=== PATIENT | female | born 1990 | race Caucasian/White ===

== ENCOUNTER → 2018-04-09 14:51 | Outpatient (CLI) | payer OTHER, SELFPAY ==
[2018-04-09] MEDS: Lactated Ringers 1,000 ML 250 ML IV (14:40)
[2018-04-09] MEDS: Ondansetron 4 MG/2 ML Vial IV (15:40)
[2018-04-09] MEDS: proMETHazine 25 MG/ML Syringe IV (15:41)
== END ==
PROVIDERS: Family Provider Obstetrics & Gynecology; PCP Obstetrics & Gynecology; Referring Provider Obstetrics & Gynecology; Visit Provider Obstetrics & Gynecology
DX: O21.9 Vomiting of pregnancy, unspecified (principal); Z3A.00 Weeks of gestation of pregnancy not specified
CPT/HCPCS: 96361 ×2; 96365; 96375 ×2; J7120; A4216; J2405; J3490

== ENCOUNTER 2018-10-21 17:55 | Inpatient (IN) | payer OTHER, SELFPAY ==
[2016-11-27 20:44] VITALS: BMI 37.0
[2018-10-21] VITALS (10 sets, daily range): BP systolic 114–160; BP diastolic 69–96; PULSE 80–88; RESP 16–18; TEMP 36.8–37.2; O2SAT 96–100; BMI 46.6
[2018-10-21] MEDS: Lactated Ringers 1,000 ML 15 ML IV (16:41)
[2018-10-21 17:07] LABS: International Normalized Ratio 0.9; Prothrombin Time (Protime)PT. 11.7 SECONDS (11.7-14.9)
[2018-10-21 17:08] LABS: Partial Thromboplast Time 27.1 Seconds (24.1-36.2)
[2018-10-21 17:10] LABS: Protein, Urine (Random) 10.6 mg/dL (<11.9); Protein:Creat Ratio 606 mg/g CRE (0-200)
[2018-10-21 17:24] LABS: AST(SGOT) 17 U/L (15-37); Alanine Aminotransfer ALT/SGPT 18 U/L (13-56); EST Glomerular Filtration Rate 106 mL/min (>60); Est Glom Filt Rate - Afr Amer 128 mL/min (>60); Estimated Creatinine Clearance 108.63 ml/min; Uric Acid 4.8 mg/dL (2.6-6.0)
[2018-10-21 17:25] LABS: Hemoglobin 12.6 g/dL (12.0-15.0); Mean Corp Hgb Conc 34.1 g/dL (32-36); Mean Corpuscular Hgb 30.2 pg (27.0-32.0); Mean Corpuscular Volume 88.7 fL (81-99); Mean Platelet Vol. 13.1 fl (6.2-12.0); Platelet Count 222 K/mm3 (150-450); RBC Distribution Width CV 13.7 % (11.6-14.6); RBC Distribution Width SD 44.2 fl (35.1-43.9); Red Blood Count 4.17 M/mm3 (4.2-5.4); White Blood Count 12.7 K/mm3 (4.4-11.0)
--- NOTE | 2018-10-21 17:44 | HP.PCM_ITS ---
History Date of Admission: 10/21/18 Final VIKY Source: US <20 weeks Gestational age: 34.4 History of this : This is a 28 year-old, @ 34.4 wks presented to the office with severe BP with TRUBP average of 171/106. pt reports frontal headaches at night but does not take anything for relief as they self resolve- pt reports occasional changes with vision. pt reports increased swelling in hands and legs as well. pt reports good FM, no vaginal bleeding or LOF. Allergies bee venom protein (honey bee) Allergy (Verified 10/13/18 13:45) Other Home Medications: Home Medications No122/Iron/Folic Acid [ Multi Tablet] 1 each PO DAILY 04/09/18 [place]-3 Fatty Acids [Fish Oil] 1 tab PO DAILY 10/21/18 Ondansetron [Ondansetron Odt] 8 mg PO Q8H PRN PRN 10/21/18 Smoking Status: Never smoker Alcohol: None Number of Fetus(es): 1 NST - FHR Rate Baby A Baseline: 145 Variability:: Moderate Accelerations:: 15 x 15 Decelerations:: None NST Reactive:: Yes FHR Category:: Category I Uterine Activity:: no ctx History Past Pregnancies: Past Pregnancies Delivery Date Name GA/Weeks Outcome Route Weight Gender Labor Length Anesthesia Delivery Location Provider FOB Labs: O+, HIV neg, HEPB NEG, rub imm, syphilis neg Expected Delivery Method: Spontaneous Vaginal Review of Systems Eyes: Reports: Blurred vision - sees stars only on occasion HEENT: Reports: Head Aches - frontal at night Cardiovascular: Denies: Chest Pain Gastrointestinal: Denies: Abdominal Pain Physical Exam General: Alert, Oriented x3 Abdomen: Soft, Gravid - mild RUQ on deep palpation Extremities:: No clubbing, Other - +2 pitting edema. +2 DTR on LE, + clonus on right only Estimated gestational size: Appropriate for gestational size Assessment/Plan This is a 28 year-old, @ 34.4 wks with PRE E with severe features 1) IOL with cytotec 2) Celestone 3) Magnesium 4) HTN protocol 5) may have epidural 6) anticipate 7) stick I&O 8) maintain total Fluids (oral and IV) to only 150/hr 9) PRE E labs reviewed- elevated Pro/Creat ratio
[2018-10-21] MEDS: Betamethasone/Betamethasone 30 MG/5 ML Vial 12 MG IM (17:52)
--- NOTE | 2018-10-21 18:10 | PCM.PN.BLA ---
Progress Note limited bedside ultrasound done- confirms vertex presentation. NORBERTO appears wnl. cervical exam performed- Closed/thick/high
[2018-10-21] MEDS: Magnesium Sulfate 4gm/100mL 6 GM/150 ML IV.SOLN. IV (18:20)
[2018-10-21] MEDS: Magnesium Sulfate 20 GM/500 ML BAG IV (18:59)
--- NOTE | 2018-10-21 19:41 | NURSING ---
Dr. Dean is ok with patient having a light meal prior to first Cytotec administration.
[2018-10-21] MEDS: Labetalol 200 MG Tablet PO (19:51)
[2018-10-21] MEDS: miSOPROStol 25 MCG TABLET VAGINAL (19:58)
[2018-10-21 21:11] LABS: Group B Strep DNA By PCR Negative (Negative); Internal Control PASS; Probe Check PASS; Specimen Processing Control PASS
[2018-10-21] MEDS: Acetaminophen 325 MG Tablet PO (21:45)
[2018-10-22] VITALS (16 sets, daily range): BP systolic 125–151; BP diastolic 66–88; PULSE 78–90; RESP 15–18; TEMP 36.6–37.1; O2SAT 96–98
[2018-10-22] MEDS: miSOPROStol 25 MCG TABLET VAGINAL ×2 (00:05→04:40)
[2018-10-22] MEDS: Magnesium Sulfate 20 GM/500 ML BAG IV ×2 (04:31→14:12)
[2018-10-22] MEDS: miSOPROStol 25 MCG TABLET 50 MCG VAGINAL ×2 (08:51→14:55)
[2018-10-22] MEDS: Labetalol 200 MG Tablet PO ×2 (11:31→20:20)
[2018-10-22] MEDS: Betamethasone/Betamethasone 30 MG/5 ML Vial 12 MG IM (18:29)
--- NOTE | 2018-10-22 18:34 | PCM.PN.BLA ---
Progress Note S: Patient feeling increased ctxs O: BP - 138/78 cvx - 1/75/-3 patient is grossly ruptured fhts 125 with mod variability, accels tocos irregular ctxs A&P: continue induction for severe preeclampsia on magnesium sulfate on cytotec & will start pitocin at 2100
[2018-10-22] MEDS: Ondansetron 4 MG/2 ML Vial IV (21:00)
[2018-10-22] MEDS: Lactated Ringers 500 ML 999 ML IV (21:33)
[2018-10-22] MEDS: Oxytocin 30 units/NS 500 ml 30 UNITS/500 ML IV.SOLN IV (22:07)
[2018-10-22] MEDS: fentaNYL-bupivacaine (epidural) 100 ML BAG EPIDURAL (22:11)
--- NOTE | 2018-10-22 22:24 | NURSING ---
Dr. Ponce delayed to room d/t [facility] c/s.
[2018-10-23] VITALS (12 sets, daily range): BP systolic 108–140; BP diastolic 58–81; PULSE 67–86; RESP 14–18; TEMP 36.7–36.9; O2SAT 93–97
[2018-10-23] MEDS: Magnesium Sulfate 20 GM/500 ML BAG IV ×3 (00:20→20:28)
[2018-10-23] MEDS: fentaNYL-bupivacaine (epidural) 100 ML BAG EPIDURAL (02:17)
--- NOTE | 2018-10-23 02:34 | PCM.PN.BLA ---
Progress Note S: Patient comfortable with epidural but feels some pressure with ctxs O: cvx - 3/80/-2 FSE placed fhts 135 with mod variability, accels - s/p period of recurrent lates that resolved with oxygen, stopping pitocin and position changes tocos Q 5-6 minutes A&P: Continue magnesium for severe preE Will restart pitocin when able
[2018-10-23] MEDS: Ondansetron 4 MG/2 ML Vial IV (06:57)
[2018-10-23] MEDS: Oxytocin 30 units/NS 500 ml 30 UNITS/500 ML IV.SOLN 334 UNITS IV (09:18)
[2018-10-23] MEDS: Lactated Ringers 1,000 ML 15 ML IV (09:45)
--- NOTE | 2018-10-23 09:50 | PCM.OPRPT ---
Vaginal Delivery Maternal Presentation: Medically Indicated Induction Method of Induction: Pitocin, Amniotomy, Cytotec Medical Reason for Induction: Maternal Medical Condition: list: - Severe preeclampsia Amniotic Membrane Rupture Type: Artificial Amniotic Fluid Description: Clear Final VIKY: 11/28/18 Gestational age: 34 Weeks and 6 Days Date of Procedure: 10/23/18 Pre-Operative Diagnosis: Severe preeclampsia Post-Operative Diagnosis: Same Surgery/ Procedure Performed: Spontaneous Vaginal Delivery Type of Anesthesia: Epidural Description of Procedure: Patient prepped & draped in stirrups when c/c/+2. She pushed to deliver head. Shoulders & body easily followed. 3VC clamped & cut. Infant taken to warmer with waiting pediatric team present. Placenta delivered with gentle traction. Good uterine tone obtained. Presentation: MILKA Placental Delivery Description: Spontaneous Placenta Disposition: [facility] Cord Vessel Description: 3 Vessels Cord Gases drawn per routine: ABG, VBG Cord Entanglement: None Estimated Blood Loss: 300ml A gender: Female - Gaby Alida; weight 3-13 (1 minute): 3 (5 minute): 8 - of 9 @ 10 minutes Episiotomy Description: None Laceration: 1st degree - vaginal - repaired with 3-0 vicryl Medications given after delivery: IV Pitocin Complications: None
[2018-10-23] MEDS: Labetalol 200 MG Tablet PO ×2 (11:06→22:32)
--- NOTE | 2018-10-23 16:51 | NURSING ---
@1050am IBCLC at bedside and explained to mother double pumping and hand expression. Pumping began for baby that was tranferred to SCN at this time. Mother was able to pump about 10 cc
[2018-10-23] MEDS: Ibuprofen 600 MG Tablet PO (20:41)
[2018-10-24] VITALS (14 sets, daily range): BP systolic 114–148; BP diastolic 72–94; PULSE 66–77; RESP 17–20; TEMP 36.3–37.1; O2SAT 94–98
[2018-10-24] MEDS: Acetaminophen 500 MG Tablet 1000 MG PO (02:26)
[2018-10-24] MEDS: Magnesium Sulfate 20 GM/500 ML BAG IV (07:19)
[2018-10-24] MEDS: Ibuprofen 600 MG Tablet PO ×3 (07:42→21:50)
[2018-10-24] MEDS: Senna/Docusate Sodium 1 Tablet PO (07:42)
[2018-10-24] MEDS: Labetalol 200 MG Tablet 300 MG PO ×3 (10:12→21:50)
[2018-10-24] MEDS: 0.9% Saline Lock 10 ML Syringe IV (10:12)
--- NOTE | 2018-10-24 12:28 | PCM.PN.OB ---
Subjective: Patient feels well. - Physical Exam General: Alert, Oriented x3 Abdomen: Soft, Non Tender, Non-Distended - ff mid & below umb Extremities: No Calf Tenderness Vital Signs Temp Pulse Resp BP Pulse Ox 98.2 F 70 18 141/88 H 98 10/24/18 09:40 10/24/18 09:40 10/24/18 09:40 10/24/18 09:40 10/24/18 09:40 Oxygen Delivery Method Room Air Weight: 280 lb 3.32 oz Body Mass Index (BMI) 46.6 Intake and Output for Last 24 Hours 10/22/18 10/23/18 10/24/18 23:59 23:59 23:59 Intake Total 4150.86 / 4150.86 3571.30 / 3571.30 1421.08 / 1421.08 Output Total 4550 / 4550 3115 / 3115 725 / 725 Balance -399.14 / -399.14 456.30 / 456.30 696.08 / 696.08 Microbiology Past 72 Hours 10/21/18 Unknown Group B Streptococcus Culture - Final Genital vaginal Group B Beta Streptococcus is not isolated. Medical Necessity - Tobacco Use Smoking Status: Never smoker Assessment/Plan PPD#1 Severe preE - s/p magnesium. Continue labetalol 300mg tid. Bp's reviewed & normal to mildly elevated. Routine care.
[2018-10-25] MEDS: Acetaminophen 500 MG Tablet 1000 MG PO ×2 (00:26→15:04)
[2018-10-25 02:03] VITALS: BP 125/7; PULSE 70; RESP 16; TEMP 36.4; O2SAT 95
[2018-10-25] MEDS: Labetalol 200 MG Tablet 300 MG PO ×3 (06:30→22:04)
--- NOTE | 2018-10-25 09:45 | PCM.PN.OB ---
Subjective: She denies headache, visual changes, epigastric pain or shortness of breath. Pain is minimal. She has had a bowel movement in years urinating without difficulty. - Physical Exam General: Alert, Cooperative, No apparent distress Extremities: Edema - 2+, 2+DTRS, no clonu Vital Signs Temp Pulse Resp BP Pulse Ox 97.5 F L 70 16 125/7 H 95 10/25/18 02:03 10/25/18 02:03 10/25/18 02:03 10/25/18 02:03 10/25/18 02:03 Oxygen Delivery Method Room Air Weight: 127.1 kg Body Mass Index (BMI) 46.6 Intake and Output for Last 24 Hours 10/23/18 10/24/18 10/25/18 23:59 23:59 23:59 Intake Total 3571.30 / 3571.30 1421.08 / 1421.08 Output Total 3115 / 3115 925 / 925 Balance 456.30 / 456.30 496.08 / 496.08 Microbiology Past 72 Hours 10/21/18 Unknown Group B Streptococcus Culture - Final Genital vaginal Group B Beta Streptococcus is not isolated. Medical Necessity - Tobacco Use Smoking Status: Never smoker Assessment/Plan day #2 status post vaginal delivery at 34 6/7 weeks gestation for severe preeclampsia. Patient is doing well. Blood pressures remain elevated but stable. Continue labetalol for now. Monitor until tomorrow. If patient is stable will likely discharge home tomorrow on oral antihypertensives. Infant is in special care nursery and doing well
[2018-10-25 10:00] VITALS: BP 141/79; PULSE 74; RESP 16; TEMP 37.3
[2018-10-25] MEDS: Ibuprofen 600 MG Tablet PO ×2 (10:35→20:54)
[2018-10-25 15:00] VITALS: BP 140/82; PULSE 71; RESP 18; TEMP 36.5
[2018-10-25 20:45] VITALS: BP 150/86; PULSE 66; RESP 16; TEMP 36.4
[2018-10-26 01:53] VITALS: BP 150/90; PULSE 66; RESP 16; TEMP 36.6
--- NOTE | 2018-10-26 01:56 | NURSING ---
pt up and took shower after being in SCN is now going to pump again denies headache and blurred vision states she is comfortable.
[2018-10-26] MEDS: Labetalol 200 MG Tablet 300 MG PO ×2 (05:40→14:39)
[2018-10-26] MEDS: Ibuprofen 600 MG Tablet PO (05:44)
[2018-10-26 05:45] VITALS: BP 145/95
[2018-10-26 08:00] VITALS: BP 142/73; PULSE 73; RESP 16; TEMP 36.6
--- NOTE | 2018-10-26 08:16 | DCINST_ITS ---
Discharge Diet: No Restrictions Discharge Activity: Return to Normal Activity, May not drive while taking narcotic pain medications., May Shower May resume sexual activity in: 4-6 weeks Additional Activity Instructions:: Nothing in the vagina for 4-6 weeks. You may return to work/school in 6 weeks. Call your doctor if your incision/area has: Continuous Slow Oozing, Sudden Increased Bleeding, Increased Pain/ Swelling, Increased Redness, Foul Smelling Discharge Additional Instructions: If you experience any of the following, contact your healthcare provider. * Bleeding that soaks a pad every hour for 2 hours * Fever 100.4 or higher * Unrelieved incision or abdominal pain * Swelling, redness, discharge or bleeding from your incision or episiotomy site * Your incision begins to separate * Problems urinating (including inability to urinate or burning while urinating). * Visual changes * Severe headache * Flu-like symptoms * Pain or redness in one of both of your breasts * Pain, warmth, tenderness or swelling in your legs, especially the calf area * Frequent nausea and vomiting * Symptoms of depression or anxiety If you experience any of the following, call 911 or go to the nearest Emergency Room. * Chest pain * Problems breathing * Seizure activity * Partial or complete paralysis of a body part, slurred speech, weakness or drooping of the face, or a sudden inability to walk or hold your balance Allergies/Adverse Reactions: Allergies bee venom protein (honey bee) Allergy (Verified 10/13/18 13:45) Other Medications to take at Discharge No122/Iron/Folic Acid [ Multi Tablet] 1 each PO DAILY 04/09/18 [place]-3 Fatty Acids [Fish Oil] 1 tab PO DAILY 10/21/18 Labetalol [Trandate (Beta Graham)] 300 mg PO TID #135 tab 10/26/18 Nifedipine [Procardia Xl] 30 mg PO DAILY #30 tab.er.24 10/26/18 The following prescriptions were given: Nifedipine [Procardia Xl] 30 mg PO DAILY #30 tab.er.24 Prescription Printed Labetalol [Trandate (Beta Graham)] 300 mg PO TID #135 tab Prescription Printed Please Follow Up With: Basia Bentley MD - [phone] When: Call to make an appointment in our office on 10/28 or 10/29/18 and 6 weeks or as needed. Primary Care Physician: Grace Kerr [Primary Care Provider] - Test Results: Test results from this visit will be discussed in further detail at your follow- up appointment, if applicable.
--- NOTE | 2018-10-26 08:25 | PCM.PN.OB ---
Subjective: Patient seen at bedside doing well. Patient denies any visual changes. Has a mild headache but reports has not been sleeping. Patient denies any right upper quadrant pain. Lochia is mild. Swelling is decreasing in hands and legs. - Physical Exam General: Alert, Oriented x3 Abdomen: Soft, Non Tender, Non-Distended, - - Fundus firm Extremities: - - +1 edema in the lower extremities Vital Signs Temp Pulse Resp BP Pulse Ox 97.8 F 66 16 145/95 H 95 10/26/18 01:53 10/26/18 01:53 10/26/18 01:53 10/26/18 05:45 10/25/18 02:03 Oxygen Delivery Method Room Air Weight: 127.1 kg Body Mass Index (BMI) 46.6 Intake and Output for Last 24 Hours 10/24/18 10/25/18 10/26/18 23:59 23:59 23:59 Intake Total 1421.08 / 1421.08 Output Total 925 / 925 Balance 496.08 / 496.08 Microbiology Past 72 Hours 10/21/18 Unknown Group B Streptococcus Culture - Final Genital vaginal Group B Beta Streptococcus is not isolated. Medical Necessity - Tobacco Use Smoking Status: Never smoker Assessment/Plan day #3 status post after induction of labor for severe preeclampsia at 34.6 weeks gestation Procardia 30 XL added to medications continue labetalol 300 mg 3 times daily Monitor vital signs if good response to the Procardia may DC to hotel status today Follow-up in the office on 10/29/2018 for blood pressure check at 9 AM Signs and symptoms of preeclampsia were reviewed with the patient
[2018-10-26] MEDS: NIFEdipine 30 MG Tablet PO (10:44)
--- NOTE | 2018-10-26 11:24 | DS.PCM_ITS ---
Discharge Summary Date of Admission: 10/21/18 Date of Discharge: 10/26/18 Summary: This patient was admitted to [facility] on 10/21/2018 for severe preeclampsia 34.4 weeks gestation. Labor induction was started and patient progressed to fully dilated and delivered a live on 10/23/2018 via vaginal delivery. Patient remained on labetalol 300mg 3 times daily to control her blood pressures and on day #3 Procardia 30 XL was also added as her blood pressures are still slightly elevated. Remains stable she received magnesium during labor and . At time of discharge patient had a slight headache but she attributed that to not sleeping she denied any right upper quadrant pain or visual changes. We will follow-up in the office on 10/29/2018 for blood pressure check. - Physical Exam Vital Signs Temp Pulse Resp BP Pulse Ox 97.8 F 66 16 145/95 H 95 10/26/18 01:53 10/26/18 01:53 10/26/18 01:53 10/26/18 05:45 10/25/18 02:03 Oxygen Delivery Method Room Air Weight: 127.1 kg Body Mass Index (BMI) 46.6 Intake and Output for Last 24 Hours 10/24/18 10/25/18 10/26/18 23:59 23:59 23:59 Intake Total 1421.08 / 1421.08 Output Total 925 / 925 Balance 496.08 / 496.08 Microbiology Past 72 Hours 10/21/18 Unknown Group B Streptococcus Culture - Final Genital vaginal Group B Beta Streptococcus is not isolated.
[2018-10-26 12:00] VITALS: BP 134/79; PULSE 73; RESP 16; TEMP 36.4
== END 2018-10-26 15:00 | disposition home or self-care (01) | DRG 807 ==
LOC: WPOUT 18:03
PROVIDERS: Obstetrics & Gynecology; Admitting Provider Obstetrics & Gynecology; Family Provider Obstetrics & Gynecology; PCP Obstetrics & Gynecology; Referring Provider Obstetrics & Gynecology; Visit Provider Obstetrics & Gynecology
DX: O14.14 Severe pre-eclampsia complicating childbirth (principal); Z37.0 Single live birth; O60.14X0 Preterm labor third trimester with preterm delivery third trimester, not applicable or unspecified; O70.0 First degree perineal laceration during delivery; Z3A.34 34 weeks gestation of pregnancy
CPT/HCPCS: 59025; 59050; 76815; 82565; 82570; 84156; 84450; 84460; 84550; 85027; 85610; 85730; 86850; 86900; 86901; 87081; 87653; 99218; J7120; A4216; G0378; J0702; J2405

== ENCOUNTER 2021-04-18 14:55 | Outpatient (CLI) | payer OTHER, SELFPAY ==
[2021-04-18 15:58] LABS: Hematocrit 34.7 % (37-47); Mean Corp Hgb Conc 34.6 g/dL (32-36); Mean Corpuscular Hgb 29.6 pg (27.0-32.0); Mean Corpuscular Volume 85.5 fL (81-99); Platelet Count 291 K/mm3 (150-450); RBC Distribution Width CV 13.8 % (11.6-14.6); Red Blood Count 4.06 M/mm3 (4.2-5.4); White Blood Count 10.3 K/mm3 (4.4-11.0)
[2021-04-18 16:01] VITALS: BMI 47.9
--- NOTE | 2021-04-18 16:14 | NURSING ---
Changed OB medical exam visual disturbances section on admission due to patient telling this RN that she was not having visual disturbances at present but that she had them earlier this am. States that they have resolved at present.
[2021-04-18 16:17] LABS: Protein:Creat Ratio 203 mg/g CRE (0-200)
[2021-04-18] MEDS: Betamethasone/Betamethasone 30 MG/5 ML Vial 12 MG IM (16:29)
[2021-04-18 16:30] LABS: AST(SGOT) 8 U/L (15-37); Alanine Aminotransfer ALT/SGPT 11 U/L (13-56); Creatinine, Serum 0.82 mg/dL (0.55-1.02); EST Glomerular Filtration Rate 87 mL/min (>60); Est Glom Filt Rate - Afr Amer 105 mL/min (>60); Estimated Creatinine Clearance 91.09 ml/min; Uric Acid 3.7 mg/dL (2.6-6.0)
--- NOTE | 2021-04-18 18:09 | OB.TRI.NOTE ---
HPI - General HPI Narrative THOMAS LOBO, is a 30 F at 30.0 weeks gestation that was sent over from office for elevated blood pressure. True BP in office was 152/93. Patient has a history of a PTD at 34.6 weeks due to preeclampsia. PFSH PFSH Home Medications Multi 1 ea PO DAILY 04/09/18 [History Last Taken Unknown] omega 3-rmj-rzj-fish oil 1 tab PO DAILY 10/21/18 [History Last Taken Unknown] aspirin 81 mg PO DAILY 04/18/21 [History Last Taken Unknown] famotidine 20 mg PO BID 04/18/21 [History Last Taken Unknown] promethazine 12.5 mg PO DAILY 04/18/21 [History Last Taken Unknown] sertraline [Zoloft] 100 mg PO DAILY 04/18/21 [History Last Taken Unknown] Allergy/AdvReac Type Severity Reaction Status Date / Time bee venom protein (honey bee) Allergy Other Verified 04/18/21 15:52 Social History Smoking Status: Never smoker History Elective abortions Hx Para 0 Spontaneous abortions Hx # Term Pregnancies Ectopic pregnancies Hx # Pregnancies Multiple births # of living children ROS Eyes Eyes: Denies blurry vision Cardiovascular Cardiovascular: Reports none; Denies chest pain at rest, chest pain with activity or dizziness Respiratory/Chest Respiratory/Chest: Denies cough or dyspnea Gastrointestinal Gastrointestinal: Reports none and other; Denies diarrhea or vomiting Genitourinary Genitourinary: Denies dysuria Musculoskeletal Musculoskeletal: Reports none Integumentary Integumentary: Reports none; Denies rash Neurologic Neurologic: Reports other Details: Mild frontal headache ; Denies dizziness or other visual disturbances Psychiatric Psychiatric: Reports none Physical Exam Const alert and no apparent distress General Appearance: cooperative Orientation / Consciousness: awake Exam Limitations: no limitations HEENT normocephalic Neck full ROM Chest inspection of chest normal Resp normal respiratory effort and normal air movement Effort and Inspection: symmetric chest movement Cardio regular rate GI soft to palpation, non-tender and non-distended Inspection: and other Back/Spine normal ROM Extremity full ROM, normal capillary refill and no calf tenderness Skin no rashes or lesions noted Neuro oriented x3 and CN's II-XII intact bilaterally Psych mental status grossly normal Assessment & Plan (1) Elevated blood pressure affecting in second trimester, antepartum: (2) History of delivery: (3) History of pre-eclampsia in prior , currently : PLAN: NST reactive PIH labs - within normal limits P/C ratio- 203 BP's 130's/ 70's with highest readings being 140/81 and 144/72 Tylenol 1000 mg PO x 1 now Celestone 12 mg IM x 1 now and repeat dose in 24 hours D/C home with preeclampsia and labor precautions Follow up in office on Thursday for BP check Dr. Dean involved with plan of care and is collaborating physician
== END 2021-04-18 23:59 | disposition home or self-care (01) ==
LOC: WPOUT 15:03 → WP 15:26
PROVIDERS: PCP Obstetrics & Gynecology; Referring Provider Advanced Practice Midwife; Visit Provider Advanced Practice Midwife
DX: O16.3 Unspecified maternal hypertension, third trimester (principal); Z23 Encounter for immunization; Z3A.30 30 weeks gestation of pregnancy; Z79.899 Other long term (current) drug therapy; Z79.82 Long term (current) use of aspirin
CPT/HCPCS: 59050; 82565; 82570; 84156; 84450; 84460; 84550; 85027; 96372; 99218; G0378; J0702

== ENCOUNTER 2021-04-19 16:28 | Outpatient (CLI) | payer OTHER, SELFPAY ==
[2021-04-19 16:34] VITALS: BMI 47.4
[2021-04-19 16:54] VITALS: BP 135/77; PULSE 92
[2021-04-19] MEDS: Betamethasone/Betamethasone 30 MG/5 ML Vial 12 MG IM (16:59)
== END 2021-04-19 23:59 | disposition home or self-care (01) ==
LOC: WPOUT 16:30 → WP 16:31
PROVIDERS: PCP Obstetrics & Gynecology; Visit Provider Advanced Practice Midwife
DX: O60.00 Preterm labor without delivery, unspecified trimester (principal); Z3A.00 Weeks of gestation of pregnancy not specified; Z23 Encounter for immunization
CPT/HCPCS: 96372; 99218; G0378; J0702

== ENCOUNTER 2021-05-08 18:00 | Outpatient (CLI) | payer OTHER, SELFPAY ==
[2021-05-08] VITALS (35 sets, daily range): BP systolic 136–195; BP diastolic 65–101; PULSE 88–102; RESP 16; TEMP 37.2–37.4; O2SAT 91–99; BMI 47.7
[2021-05-08] MEDS: Labetalol (Prefilled) 20 MG/4 ML IV (18:37)
[2021-05-08] MEDS: Lactated Ringers 1,000 ML 50 ML IV (18:38)
[2021-05-08] MEDS: Magnesium Sulfate 4gm/100mL 4 GM/100 ML IV.SOLN. IV (18:40)
[2021-05-08 18:55] LABS: Hematocrit 37.5 % (37-47); Mean Corp Hgb Conc 34.7 g/dL (32-36); Mean Corpuscular Hgb 29.4 pg (27.0-32.0); Mean Corpuscular Volume 84.8 fL (81-99); Mean Platelet Vol. 12.1 fl (6.2-12.0); Platelet Count 276 K/mm3 (150-450); RBC Distribution Width CV 13.8 % (11.6-14.6); RBC Distribution Width SD 42.7 fl (35.1-43.9); Red Blood Count 4.42 M/mm3 (4.2-5.4); White Blood Count 11.6 K/mm3 (4.4-11.0)
[2021-05-08] MEDS: Magnesium Sulfate 4gm/100mL 2 GM/50 ML IV.SOLN. IV (19:03)
--- NOTE | 2021-05-08 19:04 | HP.PCM.OB_ITS ---
HPI - General HPI Narrative THOMAS LOBO, is a 30 F @ 32.6 weeks who presents to labor and delivery complaining of a severe headache, epigastric pain, visual changes since today. Patient reports she does have a history of preeclampsia with her previous and was concerned that this was happening again. Patient states she has been taking her baby aspirin. She is not taking any prescribed blood pressure medications. Patient states she was seen in the hospital approximately 2 weeks ago and at that time received Celestone. Patient reports that her blood pressures normalized after that without medication. Patient reports good movement, denies any vaginal bleeding or leaking fluid or contractions. Patient states her last delivery was vaginal delivery with 3 pound female infant. Maternal Data Information Final VIKY: 06/27/21 Final VIKY Source: US <20 weeks Gestational age: 32.6 PFSH PFSH Home Medications Multi 1 ea PO DAILY 04/09/18 [History Last Taken Unknown] aspirin 81 mg PO DAILY 04/18/21 [History Last Taken Unknown] famotidine 20 mg PO BID 04/18/21 [History Last Taken Unknown] sertraline [Zoloft] 100 mg PO DAILY 04/18/21 [History Last Taken Unknown] Allergy/AdvReac Type Severity Reaction Status Date / Time bee venom protein (honey bee) Allergy Other Verified 04/18/21 15:52 Social History Smoking Status: Never smoker History Elective abortions Hx Para 0 Spontaneous abortions Hx # Term Pregnancies Ectopic pregnancies Hx # Pregnancies Multiple births # of living children NST FHR Rate Baby A Baseline: 140 Variability:: Moderate Accelerations:: 15 x 15 Decelerations:: None NST Reactive:: Yes FHR Category:: Category I Uterine Activity:: occasional ROS ROS Narrative Patient reports headache frontal aspect. She reports blurry vision and epigastric discomfort with nausea. Vital Signs Vital Signs Vital Signs: 05/08/21 18:19 05/08/21 18:24 05/08/21 18:32 Temperature 99.0 F Temperature Source Temporal Pulse Rate 90 93 89 Respiratory Rate Respiratory Effort Respiratory Depth Respiratory Pattern Blood Pressure 177/96 H 189/101 H Blood Pressure Mean BP Systolic 177 189 BP Diastolic 96 101 Blood Pressure Source Blood Pressure Position Blood Pressure Location Pulse Ox 96 97 97 Oxygen Delivery Method 05/08/21 18:33 05/08/21 18:37 05/08/21 18:40 Temperature 99.4 F H Temperature Source Temporal Pulse Rate 95 94 97 Respiratory Rate 16 Respiratory Effort Normal Respiratory Depth Normal Respiratory Pattern Normal Blood Pressure 195/99 H 195/99 H Blood Pressure Mean 131 BP Systolic 195 194 BP Diastolic 99 98 Blood Pressure Source Monitor Blood Pressure Position Semi-Fowlers Blood Pressure Location Right Arm Pulse Ox 98 97 Oxygen Delivery Method Room Air 05/08/21 18:42 05/08/21 18:45 05/08/21 18:47 Temperature Temperature Source Pulse Rate 91 95 92 Respiratory Rate Respiratory Effort Respiratory Depth Respiratory Pattern Blood Pressure Blood Pressure Mean BP Systolic BP Diastolic Blood Pressure Source Blood Pressure Position Blood Pressure Location Pulse Ox 99 94 97 Oxygen Delivery Method 05/08/21 18:48 05/08/21 18:52 05/08/21 18:55 Temperature Temperature Source Pulse Rate 96 100 98 Respiratory Rate 16 Respiratory Effort Respiratory Depth Respiratory Pattern Blood Pressure 158/71 H 150/71 H Blood Pressure Mean 97 BP Systolic 158 BP Diastolic 71 Blood Pressure Source Monitor Blood Pressure Position Semi-Fowlers Blood Pressure Location Right Arm Pulse Ox 91 98 Oxygen Delivery Method Room Air 05/08/21 18:57 05/08/21 18:58 05/08/21 19:02 Temperature Temperature Source Pulse Rate 96 99 96 Respiratory Rate Respiratory Effort Respiratory Depth Respiratory Pattern Blood Pressure 150/71 H Blood Pressure Mean BP Systolic 150 BP Diastolic 71 Blood Pressure Source Blood Pressure Position Blood Pressure Location Pulse Ox 93 93 Oxygen Delivery Method Weight Weight: 130.2 kg Body Mass Index (BMI) 47.7 Physical Exam Narrative Abdomen: Gravid, mild tenderness to palpation in the right upper quadrant. Mild epigastric pain on palpation Extremities: no edema, no clonus Const alert and oriented x3 General Appearance: cooperative Labs Labs Labs: Blood Type O POSITIVE Antibody Screen NEGATIVE Hct 37.5 % (37-47) Hgb 13.0 g/dL (12.0-15.0) Group B Strep DNA Negative (Negative) Rhogam given: No Assessment & Plan (1) 32 weeks gestation of : (2) Severe preeclampsia: QUALIFIERS: Trimester: third trimester Qualified Code(s): O14.13 - Severe pre-eclampsia, third trimester (3) History of pre-eclampsia in prior , currently : (4) History of delivery: (5) Obesity affecting : QUALIFIERS: Trimester: third trimester Qualified Code(s): O99.213 - Obesity complicating , third trimester PLAN: @ 32.6 weeks- SEVERE PREECLAMPSIA 1) Magnesium 6gm loading then 2g/hr, Total IVF to remain at 150cc/hr 2) PRE E labs 3) Labetalol HTN protocol initiated- maintenance started of 200mg PO BID 4) pt received Celestone x 2 at 30 weeks- rescue dose given today 5) Limited Bedside Ultrasound today- VERTEX 6) recent growth US 84% 7) Spoke to [facility] Dr. Sandoval- Agrees with transport if stable and will accept at [facility]- pt and counseled on transport- agree 8) Rapid GBS done
[2021-05-08] MEDS: Betamethasone/Betamethasone 30 MG/5 ML Vial 12 MG IM (19:07)
[2021-05-08] MEDS: Magnesium Sulfate 20 GM/500 ML BAG IV (19:14)
[2021-05-08] MEDS: Labetalol (Prefilled) 20 MG/4 ML 40 MG IV (19:14)
[2021-05-08 19:28] LABS: Protein, Urine (Random) 14.1 mg/dL (<11.9); Protein:Creat Ratio 258 mg/g CRE (0-200)
[2021-05-08 19:28] LABS: AST(SGOT) 9 U/L (15-37); Alanine Aminotransfer ALT/SGPT 14 U/L (13-56); Creatinine, Serum 0.72 mg/dL (0.55-1.02); EST Glomerular Filtration Rate 102 mL/min (>60); Est Glom Filt Rate - Afr Amer 123 mL/min (>60); Estimated Creatinine Clearance 103.74 ml/min; LDH 211 U/L (84-246); Uric Acid 4.2 mg/dL (2.6-6.0)
[2021-05-08] MEDS: Labetalol 200 MG Tablet 300 MG PO (19:37)
[2021-05-08] MEDS: 0.9% NaCl Peripheral Flush Adult/Peds IV (20:11)
[2021-05-08] MEDS: Ondansetron 4 MG/2 ML Vial IV (20:11)
--- NOTE | 2021-05-08 20:20 | NURSING ---
194 Transport team on unit 2004 Marcelo CRUM called report to Riya Bailey RN, at [facility] 2006 called. updated transport team is on unit. Pt nauseated, large amts of emesis. updated on last bp 138/81, new order for 4mg IV zofran x1 2019 pt discharged, transported to [facility] via [facility] transport Services
[2021-05-08 20:54] LABS: Group B Strep DNA By PCR Negative (Negative); Internal Control PASS; Probe Check PASS; Specimen Processing Control PASS
== END 2021-05-08 23:59 | disposition short-term general hospital (02) ==
LOC: WPOUT 18:03 → WP 18:03
PROVIDERS: PCP Obstetrics & Gynecology; Visit Provider Obstetrics & Gynecology
DX: O14.13 Severe pre-eclampsia, third trimester (principal); O99.213 Obesity complicating pregnancy, third trimester; Z3A.32 32 weeks gestation of pregnancy; Z79.82 Long term (current) use of aspirin; Z79.899 Other long term (current) drug therapy
CPT/HCPCS: 96365; 96366; 96367; 96375 ×2; 96372; 36415; 59025; 59050; 82565; 82570; 83615; 84156; 84450; 84460; 84550; 85027; 87081; 87653; 94760; 96376; 99218; J7120; A4216; G0378; J0702; J2405

== ENCOUNTER 2022-02-13 05:51 | Day surgery (SDC) | payer OTHER, SELFPAY ==
--- NOTE | 2022-02-12 13:15 | HP.PCM_ITS ---
History and Physical Date of Admission: 02/13/22 Pre-Op History and Physical ? HPI: The patient is a 31 year old female presenting for sterilization consultation. Pt has two children and does not desire more children. Pt declines LARC. ? pre-operative visit. She is scheduled for laparoscopic bilateral salpingectomy, for desires steriliz ation on 02/13/22. Procedure discussed along with risks, benefits and complications. Other alternatives discussed for management. Consent form signed? Yes. ? ? PAST MEDICAL HISTORY PAST MEDICAL HISTORY Diagnosis Date ? Bone tumor 2006 ? Benign Osteocondroma Removal - Left knee ? depression ? ? depression/anxiety ? Gestational hypertension 04/19/2021 ? depression ? ? Pre-eclampsia 05/08/2021 ? Preeclampsia, severe ? ? ? PAST SURGICAL HISTORY PAST SURGICAL HISTORY Procedure Laterality Date ? PAST SURGICAL HISTORY OF ? 2006 ? Benign Osteocondroma Removal - Left knee ? PAST SURGICAL HISTORY OF ? ? ? left ankle -remival calcium deposit and extra bone, ligaments, tendon ? ? ? CURRENT MEDICATIONS Current Outpatient Medications Medication Sig Dispense Refill ? escitalopram oxalate (LEXAPRO) 10 mg tablet ? fluoxetine HCl (FLUOXETINE ORAL) Take by mouth. ? ? ? No current facility-administered medications for this visit. ? ? ALLERGIES: Bee Sting ? PERSONAL HISTORY: SOCIAL HISTORY Social History ? Tobacco Use ? Smoking status: Never ? Smokeless tobacco: Never Vaping Use ? Vaping Use: Never used Substance Use Topics ? Alcohol use: Not Currently ? Drug use: No ? FAMILY HISTORY: FAMILY HISTORY FAMILY HISTORY Problem Relation Age of Onset ? other (Had all of her babies ) Mother ? ? [place]; Progesterone Injections ? other (Hysterectomy) Mother ? ? other (Extro-metriosis) Mother ? ? other (endometriosis) Mother ? ? other (Tumor on Heart) Father ? ? other (Pre-Cancer, Castleman's Disease) Sister ? ? other (Had all of her babies ) Sister ? ? Progesterone Injections ? No Known Problems Sister ? ? Asthma Brother ? ? Diabetes Maternal Grandmother ? ? Glaucoma Maternal Grandmother ? ? Colon Cancer Maternal Grandfather ? ? other (colon cancer) Maternal Grandfather ? ? Heart Paternal Grandmother ? ? sudden at 49 ? Colon Cancer Paternal Grandfather ? ? Diabetes Paternal Grandfather ? ? Cancer Paternal Grandfather ? ? pancreatic cancer ? Stroke Paternal Grandfather ? ? ? REVIEW OF SYMPTOMS: negative except as noted above PHYSICAL EXAMINATION: ? VITALS: Blood pressure 118/80, pulse 90, resp. rate 16, height 5' 5 (1.651 m), weight 271 lb 3.2 oz (123 kg), last menstrual period 01/21/2022, currently . ? GENERAL: The patient is well nourished, well hydrated in no acute distress. , The patient is oriented to time, place, and person. NECK: full range of motion LUNGS: Clear to auscultation bilaterally. no wheezes, rhonchi or rales HEART: Regular rate and rhythm and Normal heart sound ? IMPRESSION: Desires sterilization ? PLAN: Laparoscopic bilateral salpingectomy ? Pt has been counseled on risks/benefits and alternatives of surgery including but not limited to anesthesia, bleeding, infection, injury to pelvic structures including bowel, bladder, ureters and vessels. Pt wishes to proceed with surgery at this time. Declines LARC-understands this is not reversible. Risk of possible future ectopic was reviewed. ? Pre and postop instructions reviewed ? I have reviewed and updated past medical and surgical history, medications and allergies Basia Dean MD Office Visit on 01/28/2022 Office Visit on 01/28/2022 Note shared with patient
[2022-02-13 06:37] LABS: Internal QC Validated? YES +Cl - CLEAR BKGD; Pregnancy, Urine Negative Negative
[2022-02-13 06:43] VITALS: BP 133/91; PULSE 92; RESP 16; TEMP 37.1; O2SAT 98; BMI 45.8
[2022-02-13] MEDS: Lactated Ringers 1,000 ML 15 ML IV (06:52)
[2022-02-13 07:27] LABS: Hematocrit 40.7 % (37-47); Hemoglobin 13.7 g/dL (12.0-15.0); Mean Corp Hgb Conc 33.7 g/dL (32-36); Mean Corpuscular Hgb 27.7 pg (27.0-32.0); Mean Corpuscular Volume 82.2 fL (81-99); Mean Platelet Vol. 11.4 fl (6.2-12.0); Platelet Count 333 K/mm3 (150-450); RBC Distribution Width CV 14.3 % (11.6-14.6); RBC Distribution Width SD 42.3 fl (35.1-43.9); Red Blood Count 4.95 M/mm3 (4.2-5.4); White Blood Count 6.9 K/mm3 (4.4-11.0)
--- NOTE | 2022-02-13 07:30 | FALS_PTH ---
PATIENT: THOMAS LOBO LOC: [facility] [place] U#:[id number] AGE/SX: 31/F ROOM: RE02/13/[address]: Dr. Basia Bentley, MDDOB: 1990 BED: DIS: 02/13/2022 SPEC #: [id number] RECD: 02/13/22 10:29 STATUS: ISIAH JESSICA #: [id number] EMILY: 02/13/22 07:[address]: Basia Bentley DEPT: SURGICAL PATHOLOGY RECD BY: Trista Dawn ENTERED: 02/13/22 10:52 SP TYPE: FALL TUBES OTHR DR: Dr. Cong Lazaro MD Tissues: Fallopian tube Procedures: Surgery Specimen Level II HEADER OPERATION: Laparoscopic salpingectomy PRE-OP DIAGNOSIS: Sterilization TISSUE SUBMITTED: Bilateral fallopian tubes MICROSCOPIC DIAGNOSIS Bilateral fallopian tubes, salpingectomy: Bilateral fallopian tubes, no pathologic diagnosis. A paratubal cyst. JOSE:[place] 02/14/2022 MICROSCOPIC DESCRIPTION Slides are reviewed. GROSS DESCRIPTION Received in fixative is one container labeled with the patient's name and designated bilateral fallopian tubes. The specimen consists of bilateral fallopian tubes including fimbrial ends measuring 6.5 cm in length and 0.5 cm in diameter and 6 cm in length and 0.5 cm in diameter. One of the fallopian tubes also shows a paratubal cyst measuring 1.5 x 0.5 x 0.1 cm. The fallopian tubes are not identified as right or left. Sections reveal unremarkable cut surfaces. Block Feeder sections are submitted in two cassettes as follows: 1 ? one fallopian tube, 2 ? second fallopian tube and adjacent paratubal cyst. / JOSE:garfield 02/13/2022 TC:5 CPT: 69490 x2
--- NOTE | 2022-02-13 08:07 | OP.PCM_ITS ---
Report of Operation Date of Procedure: 02/13/22 Pre-Operative Diagnosis: desires sterilization Post-Operative Diagnosis: same Surgery/Procedure Performed:: Laparoscopic bilateral salpingectomy Description of Surgical Findings:: Normal ovaries and tubes bilaterally- small paratubal cysts presents. Uterus normal. Surgeon: Basia Bentley production supervisor trainee: None Type of Anesthesia: General and Local Special Medications: 0.25%marcaine Specimen's removed: bilateral fallopian tubes Drains: none Estimated Blood Loss (mL): <5cc Fluids Replaced: 1000 Description of Procedure: After informed consent was obtained patient was taken to the operating room she was placed in supine position she was given anesthesia. She was then placed in the [facility] stirrups and she was prepped and draped in normal sterile fashion. Bladder was drained prior to the start of procedure. At this time attention was turned to the vaginal portion where weighted speculum placed at posterior fornix vagina single-tooth tenaculum was used to gently grasp the internal the cervix. uterus was gently sounded to approximately 8 cm. Uterine manipulator was placed without difficulty. Legs then placed in parallel with t he abdomen the tenaculum and the weighted speculum were removed. 2 towel clamps were placed at level of umbilicus. Marcaine was injected infraumbilical and a small incision was made. The 5 mm trocar was placed under direct visualization. CO2 gas was used to insufflate the intra-abdominal cavity. Upon inspection no gross abnormalities appreciated- the uterus tubes and ovaries appeared to be normal- small paratubal cysts bilaterally. At this time then the LLQ and RLQ ports were placed First Marcaine was injected and small incision was made a knife and the 5 mm trocars were placed. At this time then tubes were traced back to the fimbriated ends. enseal was used to coagulate and ligate along mesosalpinx bilaterally until tubes removed completely. Good hemostasis was appreciated. At this time procedure was deemed complete successful. The gas was desufflated on from the intra-abdominal cavity. The trochars were removed. Skin was closed using 4-0 Monocryl in a subcutaneous fashion. Dermabond glue was placed. Instrument lap and needle counts were correct ?2. The uterine manipulator was removed. Vaginal sweep was performed it was negative. There were no complications anticipated normal postoperative course for this patient. Grafts/Implants Used: none Procedure Start Time: 07:49 Procedure Stop Time: 08:06 Complications none Admit VTE Documentation VTE Present on Admission: Yes VTE Mechan Device Prophylaxis: SCD's VTE Pharm Prophylaxis ordered?: No Reason prophylaxis not ordered:: Procedure Not Indicated
--- NOTE | 2022-02-13 08:11 | DCINST_ITS ---
Discharge Instructions Procedure Other Diet Discharge Diet: No restrictions Activity May resume sexual activity in: 2 weeks Lifting Restrictions: 20-25 lbs Dressing / Incision Call your doctor if your incision/area has: Continuous Slow Oozing, Sudden Increased Bleeding, Increased Pain/ Swelling, Increased Redness, Foul Smelling Discharge and Swelling at the incision site Call your doctor if you observe: Fever of 101 or Higher, Inability to urinate, Inability to have a bowel movement, Using more than 1 pad per hour and Uncontrolled pain Additional Dressing/Incision Instructions:: You have skin glue over your incision sites, do not pick off. You may shower and let the soap and water run over the incision sites and dab dry. Follow Up Care Please Follow Up With: Basia Bentley MD When: 1-2 weeks post OP if you need an appointment please call [phone] Test Results: Test results from this visit will be discussed in further detail at your follow- up appointment, if applicable. Discharge Plan Admission Attending Provider: Basia Bentley Primary Care Provider: Cong Lazaro Discharge Orders/Prescriptions Prescriptions: No Action escitalopram oxalate [Lexapro] 10 mg Tablet 10 mg PO DAILY Referrals / Follow Up: Cong Lazaro MD [Primary Care Provider] - Disposition Disposition (needs filled in before D/C Order can be placed): Home, Self Care
[2022-02-13 08:18] VITALS: BP 133/91; BP 161/111; PULSE 83; RESP 16; TEMP 36.1; O2SAT 97
[2022-02-13 08:30] VITALS: BP 133/91; BP 139/98; PULSE 79; RESP 18; O2SAT 98
[2022-02-13 08:45] VITALS: BP 133/91; BP 149/88; PULSE 75; RESP 16; O2SAT 97
[2022-02-13 09:00] VITALS: BP 133/91; BP 144/84; PULSE 79; RESP 16; TEMP 36.4; O2SAT 100
[2022-02-13] MEDS: HYDROcodone Bitartrate/Apap 5/325 Tablet PO (09:27)
[2022-02-13 10:00] VITALS: BP 127/76; BP 133/91; PULSE 80; RESP 16; TEMP 36.6; O2SAT 100
== END 2022-02-13 10:08 | disposition home or self-care (01) ==
LOC: SDC 05:54 → AC 05:55
PROVIDERS: PCP Family Medicine; Referring Provider Obstetrics & Gynecology; Visit Provider Obstetrics & Gynecology
PROC: (CPT 58661; principal; 2022-02-13 07:15)
DX: Z30.2 Encounter for sterilization (principal); N83.8 Other noninflammatory disorders of ovary, fallopian tube and broad ligament; F41.9 Anxiety disorder, unspecified; F32.A Depression, unspecified
CPT/HCPCS: 58661; 00840; 81025; 85027; 88302; J7120; C1760; J2405